=== PATIENT | male | born 1990 | race Asian ===

== ENCOUNTER 2018-07-06 06:44 | Emergency (ER) | payer MEDICAID ==
[~2018-07-06] VITALS: Ht 177.8 cm; Wt 78.0 kg
[2018-07-06 06:49] VITALS: BP 126/78; Ht 177.8 cm; Wt 78.0 kg
== END 2018-07-06 08:15 | disposition home or self-care (01) ==
LOC: ED 06:44
DX: S62.314A Displaced fracture of base of fourth metacarpal bone, right hand, initial encounter for closed fracture (principal); W22.8XXA Striking against or struck by other objects, initial encounter; Y93.89 Activity, other specified; Y92.89 Other specified places as the place of occurrence of the external cause; Y99.9 Unspecified external cause status
CPT/HCPCS: Q0092